=== PATIENT | female | born 1985 | race Caucasian/White ===

== ENCOUNTER 2018-02-23 12:39 | Day surgery (SDC) | payer OTHER, BC ==
[~2018-02-23] VITALS: Ht 160 cm; Wt 80.3 kg
[~2018-02-23 12:39] MED LIST: AMOX500 PO; AZIT250 PO; BC; BCP; BIRTH CONTROL; CEFP200 PO; CEPH250A PO; CODACE30; CYCL10 PO; Cleocin HCl300 MG PO; ERYSTE250 PO; FOLI1 PO; HEART BURN MED; HYDACE5 PO; IBUP200; IBUP200 PO; IBUP800 PO; KETO10 PO; MULVITMINE; NAPR500 PO; NAPR550 PO; Naprosyn500 MG PO; OXYACE5T PO; Percocet 5-3251 EACH PO; Protonix40 MG PO; RANI150 PO; RXHYDACE PO; RXNAPNA550 PO; RXTRAM50 PO; SERT100 PO; TRAM50 PO; TRIA80TC TOP; Ultram50 MG PO
[2018-02-24 04:11] LABS: BASOPHILS ABSOLUTE AUTO 0.02 K/mm3 (0.00-0.23); BASOPHILS PERCENT AUTO 0 % (0-2); EOSINOPHILS PERCENT AUTO 0 % (0-6); Hematocrit 35.7 % (33.0-51.0); Hemoglobin 11.8 g/dL (11.5-16.0); IMMATURE GRAN ABSOLUTE AUTO 0.02 K/mm3 (0.00-0.10); IMMATURE GRAN PERCENT AUTO 0 % (0-1); LYMPHOCYTES PERCENT AUTO 24 % (21-46); MONOCYTES ABSOLUTE AUTO 0.43 K/mm3 (0.16-1.47); MONOCYTES PERCENT AUTO 5 % (4-13); Mean Corpuscular HGB 28.8 pg (26.0-34.0); Mean Corpuscular HGB Conc 33.1 g/dL (31.5-36.5); Mean Corpuscular Volume 87 fL (80-100); Mean Platelet Volume 9.2 fL (9.1-12.4); NEUTROPHILS ABSOLUTE AUTO 6.26 K/mm3 (1.96-9.15); NEUTROPHILS PERCENT AUTO 71 % (41-73); Platelet Count 311 K/mm3 (150-400); RDW Coefficient Variation 12.6 % (11.7-14.2); RDW Standard Deviation 40.1 fL (35.1-46.3); White Blood Cell Count 8.83 K/mm3 (4.00-11.30)
[2018-02-24] MEDS ORDERED: ESTR2 PO (14:44)
[2018-02-24] MEDS ORDERED: IBUP800 PO (14:45)
[2018-02-24] MEDS ORDERED: Percocet 5-3251 EACH PO (14:45)
[2018-02-24] MEDS ORDERED: PROM25 PO (14:46)
[2018-02-24] MEDS ORDERED: DOCU100 PO (14:47)
[2018-02-24] MEDS ORDERED: Milk Of Ma400 MG/5 M PO (14:51)
[2018-02-24] MEDS ORDERED: SIME80CH PO (14:52)
== END 2018-02-24 15:37 | disposition home or self-care (01) ==
LOC: ORSCMMR 12:39 → ORD 14:15 → ORSCMMR 14:15 → SURS 17:20 → ORSCMMR 02-24 15:37
PROVIDERS: Obstetrics & Gynecology
DX: N80.0 Endometriosis of uterus (principal); N83.291 Other ovarian cyst, right side; D25.9 Leiomyoma of uterus, unspecified; N80.3 Endometriosis of pelvic peritoneum
CPT/HCPCS: 36415; 85025; 86850; 86900; 86901; 88307; J0171; J0690; J1170; J1885; J2250; J2405; J2710; J3010; J7120

== ENCOUNTER → 2018-06-14 | Outpatient (CLI) | payer OTHER, BC ==
[~2018-06-14] MED LIST changes: +DOCU100 PO; +ESTR2 PO; +Milk Of Ma400 MG/5 M PO; +PROM25 PO; +SIME80CH PO
== END ==
LOC: LAB SHORT 11:59 → LAB UCHC 11:59
DX: K21.9 Gastro-esophageal reflux disease without esophagitis (principal)
CPT/HCPCS: 87338

== ENCOUNTER → 2020-07-22 | Outpatient (CLI) | payer OTHER ==
[~2020-07-22] MED LIST changes: +Hair, Skin & N1 EACH PO
[2020-07-24 13:03] LABS: CORNONAVIRUS (COVID19) CSH-NRL Negative (Negative)
== END ==
LOC: LAB SHORT 12:42 → LAB EV 12:42
PROVIDERS: Chiropractor
DX: B34.9 Viral infection, unspecified (principal); Z20.828 Contact with and (suspected) exposure to other viral communicable diseases
CPT/HCPCS: U0003

== ENCOUNTER 2020-09-06 19:00 | Emergency (ER) | payer OTHER ==
[~2020-09-06] VITALS: Ht 160 cm; Wt 81.7 kg
[2020-09-06] MEDS ORDERED: SERT100 PO (19:33)
[2020-09-06] MEDS ORDERED: BUPR150ER PO (19:36)
[2020-09-06] MEDS ORDERED: ATORVASTATIN CA10 M1 PO (19:37)
[2020-09-06] MEDS ORDERED: ZYRTEC10 MG PO (19:38)
== END 2020-09-06 21:43 | disposition home or self-care (01) ==
LOC: ER 19:00
DX: G43.909 Migraine, unspecified, not intractable, without status migrainosus (principal); F17.210 Nicotine dependence, cigarettes, uncomplicated; Z88.5 Allergy status to narcotic agent; Z88.0 Allergy status to penicillin; Z79.3 Long term (current) use of hormonal contraceptives; Z79.899 Other long term (current) drug therapy
CPT/HCPCS: 96372; 99283-25; J1885; J2765; Q0163

== ENCOUNTER 2022-04-24 17:10 | Emergency (ER) | payer OTHER ==
[~2022-04-24] VITALS: Ht 160 cm; Wt 73.9 kg
[~2022-04-24 17:10] MED LIST changes: +ATORVASTATIN CA10 M1 PO; +BUPR150ER PO; +ROSU10TA PO; +ZYRTEC10 MG PO
[2022-04-24] MEDS ORDERED: Ativan0.5 MG PO (20:53)
== END 2022-04-24 21:08 | disposition home or self-care (01) ==
LOC: ER 17:10
DX: F41.0 Panic disorder [episodic paroxysmal anxiety] (principal); F17.290 Nicotine dependence, other tobacco product, uncomplicated; Z88.0 Allergy status to penicillin; Z88.5 Allergy status to narcotic agent; Z79.899 Other long term (current) drug therapy
CPT/HCPCS: A9270

== ENCOUNTER 2023-03-02 07:54 | Day surgery (SDC) | payer OTHER ==
[2023-03-02] VITALS (9 sets, daily range): BP systolic 91–120; BP diastolic 45–78
[~2023-03-02] VITALS: Ht 162.6 cm; Wt 78.8 kg
[~2023-03-02 07:54] MED LIST changes: +Ativan0.5 MG PO; +FLONASE
[2023-03-02] MEDS ORDERED: ROSU10TA PO (08:22)
--- NOTE | 2023-03-02 10:40 | NUR ---
PT TO STEP DOWN, REPORT RECIEVED BY [employer]. PT A&OX4, DENIES PAIN, ABLE TO TOLERATING PO FOODS AND FLUIDS, DENIES NAUSEA. SURGICAL INCISION TO BACK IS CLEAN, DRY, AND INTACT.
--- NOTE | 2023-03-02 11:07 | NUR ---
Ambulatory in Day SurgeryPatient up to Ambulate independently. Gait steady. Discharge instructions reviewed with patient. Patient verbalizes understanding. Copy given to patient to take home. Patient States Post-Procedure ride home has been arranged. Discharged via wheelchair to private car for ride home. BELONGINGS SENT HOME WITH PT. PT DENIES PAIN OR NAUSEA.
== END 2023-03-02 23:28 | disposition home or self-care (01) ==
LOC: ORSCMMR 07:54 → ORD 09:15 → ORSCMMR 09:15
PROVIDERS: Surgery
PROC: 0JB70ZX Excision of Back Subcutaneous Tissue and Fascia, Open Approach, Diagnostic (ICD-10-PCS; principal; 2023-03-02 09:15)
DX: D17.1 Benign lipomatous neoplasm of skin and subcutaneous tissue of trunk (principal); E78.00 Pure hypercholesterolemia, unspecified; K21.9 Gastro-esophageal reflux disease without esophagitis; F41.9 Anxiety disorder, unspecified; Z79.899 Other long term (current) drug therapy
CPT/HCPCS: 88304; J0690; J1100; J1885; J2250; J2405; J2704; J3010; J7120

== ENCOUNTER 2024-11-27 08:27 | Emergency (ER) | payer OTHER ==
[~2024-11-27] VITALS: Ht 160 cm; Wt 69.0 kg
[2024-11-27 09:51] LABS: BASOPHILS ABSOLUTE AUTO 0.03 K/mm3 (0.00-0.23); BASOPHILS PERCENT AUTO 1 % (0-2); EOSINOPHILS ABSOLUTE AUTO 0.06 K/mm3 (0.00-0.68); EOSINOPHILS PERCENT AUTO 1 % (0-6); Hematocrit 38.8 % (33.0-51.0); Hemoglobin 13.1 g/dL (11.5-16.0); IMMATURE GRAN ABSOLUTE AUTO 0.01 K/mm3 (0.00-0.10); IMMATURE GRAN PERCENT AUTO 0 % (0-1); LYMPHOCYTES ABSOLUTE AUTO 2.85 K/mm3 (0.84-5.20); LYMPHOCYTES PERCENT AUTO 52 % (21-46); MONOCYTES ABSOLUTE AUTO 0.33 K/mm3 (0.16-1.47); MONOCYTES PERCENT AUTO 6 % (4-13); Mean Corpuscular HGB 29.4 pg (26.0-34.0); Mean Corpuscular HGB Conc 33.8 g/dL (31.5-36.5); Mean Corpuscular Volume 87 fL (80-100); Mean Platelet Volume 8.9 fL (9.1-12.4); NEUTROPHILS ABSOLUTE AUTO 2.17 K/mm3 (1.96-9.15); NEUTROPHILS PERCENT AUTO 40 % (41-73); Platelet Count 236 K/mm3 (150-400); RDW Standard Deviation 41.2 fL (35.1-46.3); Red Blood Cell Count 4.46 M/mm3 (3.80-5.20); White Blood Cell Count 5.45 K/mm3 (4.00-11.30)
[2024-11-27 09:58] LABS: INFLUENZA A AG Negative (NEGATIVE)
[2024-11-27 09:59] LABS: CORONAVIRUS COVID-19 AG Negative (NEGATIVE); INFLUENZA B AG Negative (NEGATIVE)
[2024-11-27 10:13] LABS: Albumin, Blood 4.4 g/dL (3.4-5.0); Albumin/Globulin Ratio 1.2 (0.8-1.8); Bilirubin, Total 0.3 mg/dL (0.1-1.0); Bun/Creatinine Ratio 11.9 (12.0-20.0); Calcium, Blood 9.7 mg/dL (8.5-10.1); Creatinine, Blood 0.67 mg/dL (0.40-1.00); Globulin, Blood 3.8 g/dL (2.2-4.0); Magnesium, Blood 2.1 mg/dL (1.6-2.4); Potassium, Blood 3.6 mmol/L (3.5-5.5); Total Protein, Blood 8.2 g/dL (6.4-8.2)
[2024-11-27] MEDS ORDERED: Ketorolac Tromethamine 30mg Vial IV ONE (10:40)
[2024-11-27] MEDS ORDERED: NS 1,000 ML IV SCH (10:40)
[2024-11-27] MEDS ORDERED: Ondansetron HCl 2 MG / ML 2ML Vial IV ONE (10:40)
[2024-11-27 12:00] VITALS: BP 130/80
== END 2024-11-27 12:35 | disposition home or self-care (01) ==
LOC: ER 08:27
PROVIDERS: Student in an Organized Health Care Education/Training Program
DX: B34.9 Viral infection, unspecified (principal); T58.8X1A Toxic effect of carbon monoxide from other source, accidental (unintentional), initial encounter; Z88.5 Allergy status to narcotic agent; Z88.1 Allergy status to other antibiotic agents
CPT/HCPCS: 71046; 80053; 82375; 83735; 84484; 85025; 87428-QW; 93005; 93010; 96374; 96375; 99284-25; J1885; J2405; J7030

== ENCOUNTER → 2025-04-23 | Outpatient (CLI) | payer OTHER | END | disposition home or self-care (01) | LOC: LAB SHORT 14:53 → LAB 14:53 | DX: M79.662 Pain in left lower leg (principal) | CPT/HCPCS: 85379 ==